=== PATIENT | male | born 1970 | race Caucasian/White ===

== ENCOUNTER 2019-03-19 22:06 | Emergency (ER) | payer OTHER ==
[~2019-03-19] VITALS: Ht 177.8 cm; Wt 122.5 kg
[2019-03-19] MEDS ORDERED: BUPR-78 PO (22:20)
[2019-03-19] MEDS ORDERED: GABA-532 PO (22:20)
[2019-03-19] MEDS ORDERED: LURA20TA PO (22:20)
[2019-03-19] MEDS ORDERED: BENZ1TAB7 PO (22:20)
[2019-03-19 22:33] LABS: BASOPHILS % (AUTO) 0.5 % (0.0-2.0); EOSINOPHILS # (AUTO) 0.2 K/uL (0.0-0.7); EOSINOPHILS % (AUTO) 2.4 % (0.0-7.0); HEMATOCRIT 43.6 % (36.7-47.1); LYMPHOCYTES # (AUTO) 2.2 K/uL (20.0-40.0); LYMPHOCYTES % (AUTO) 30.1 % (20.5-51.5); MEAN CORPUSCULAR HEMOGLOBIN 29.6 uug (23.8-33.4); MEAN CORPUSCULAR HGB CONC 34 g/dL (32.5-36.3); MEAN CORPUSCULAR VOLUME 86.1 fL (73.0-96.2); MONOCYTES # (AUTO) 0.8 K/uL (2.0-10.0); MONOCYTES % (AUTO) 10.7 % (0.0-11.0); NEUTROPHILS # (AUTO) 4.2 K/uL (1.8-8.9); NEUTROPHILS % (AUTO) 56.3 % (38.5-71.5); PLATELET COUNT (AUTO) 333 K/uL (152-348); RED BLOOD CELL COUNT(AUTO) 5.07 MIL/uL (4.06-5.63); WHITE BLOOD COUNT (AUTO) 7.4 K/uL (3.6-10.2)
[2019-03-19 22:38] LABS: POTASSIUM 3.2 mmol/L (3.5-5.1)
[2019-03-19] MEDS ORDERED: SWABABLE VALVE TRANSFER SET EA MC ONE (23:54)
[2019-03-19] MEDS ORDERED: IOHEXOL 350 100 ML INFUS..BTL ONE (23:54)
[2019-03-19] MEDS ORDERED: IV NORMAL SALINE 250 ML IV ONE (23:54)
--- NOTE | 2019-03-20 | NUR ---
PT out of ER for CT.
--- NOTE | 2019-03-20 00:15 | NUR ---
Pt back to ER from [place].
[2019-03-20] MEDS ORDERED: CEphaleXIN 500 MG CAPSULE PO ONE (01:00)
[2019-03-20] MEDS ORDERED: CEphaleXIN 500 MG CAPSULE ONE (01:03)
--- NOTE | 2019-03-20 02:43 | NUR ---
Waiting for taxi to [place] pt.
--- NOTE | 2019-03-20 03:06 | NUR ---
Patient discharged to home in stable conditon. Written and verbal after care instructions given. Patient verbalizes understanding of instructions. Pt left ER via taxi voucher [id number]. Pt appears in no distress. Called pt's board & care, [facility] [address], who are aware pt is being d/c from ER via taxi.
[2019-03-20 03:08] VITALS: BP 122/64
== END 2019-03-20 03:09 | disposition home or self-care (01) ==
LOC: ER 22:08
DX: M54.5 Low back pain (principal); R06.00 Dyspnea, unspecified; F15.10 Other stimulant abuse, uncomplicated; L02.511 Cutaneous abscess of right hand; F17.210 Nicotine dependence, cigarettes, uncomplicated; F31.9 Bipolar disorder, unspecified; Z79.899 Other long term (current) drug therapy
CPT/HCPCS: 36415; 71045; 71275; 80048; 84484; 85025; 85379; 93005; 99284; 99406; Q9967; 70030-TC; A4663; J7050